=== PATIENT | female | born 1955 | race Hispanic/Latino ===

== ENCOUNTER 2021-08-09 19:00 | Observation (INO) | payer OTHER ==
[~2021-08-09] VITALS: Ht 154.9 cm; Wt 100.9 kg
[2021-08-09] MEDS ORDERED: HYDRALAZINE HCL 20 MG/ML VIAL IV STA (19:36)
[2021-08-09] MEDS ORDERED: CLONIDINE HCL 0.1 MG TAB PO ONE (19:45)
[2021-08-09] MEDS ORDERED: HYDRALAZINE HCL 20 MG/ML VIAL ONE (19:48)
[2021-08-09] MEDS ORDERED: ASPIRIN 325 MG TAB PO ONE (20:00)
[2021-08-09] MEDS ORDERED: ASPIRIN 325 MG TAB ONE (20:02)
[2021-08-09] MEDS ORDERED: HYDRALAZINE HCL 20 MG/ML VIAL IV PRN (22:15)
[2021-08-09] MEDS ORDERED: ASPIRIN 81 MG CHEW TAB PO ONE (22:15)
[2021-08-09] MEDS ORDERED: Morphine 4mg Syringe 4 MG/ML INJ IV PRN (22:15)
[2021-08-09] MEDS ORDERED: NITROGLYCERIN 0.4 MG SUBL SL PRN (22:15)
[2021-08-09] MEDS ORDERED: ONDANSETRON HCL INJ 2MG/ML 2ML 2 MG/ML VIAL IV PRN (22:15)
[2021-08-09] MEDS ORDERED: SODIUM CHLORIDE FLUSH 10 ML SYR INJ PRN (22:15)
[2021-08-09 23:41] VITALS: BP 133/48
[2021-08-10] VITALS: BP 133/48
[2021-08-10] MEDS ORDERED: VASOTEC10 MG PO (03:41)
[2021-08-10] MEDS ORDERED: PNEUMOCOCCAL VACCINE POLYVALENT 23 MCG/0.5 ML VIAL IM SCH (03:47)
[2021-08-10 04:00] VITALS: BP 140/54
[2021-08-10 07:13] LABS: BASOPHILS # (AUTO) 0.1 (0.0-0.1); BASOPHILS % 0.6 % (0.0-1.0); EOSINOPHILS # (AUTO) 0.2 (0.0-0.4); EOSINOPHILS % 2.8 % (0.0-6.0); HEMATOCRIT 33.1 % (34.2-44.1); HEMOGLOBIN 10.6 g/dL (12.0-16.0); LYMPHOCYTES # (AUTO) 1.5 (1.0-3.2); LYMPHOCYTES % 18.1 % (18.0-39.1); MEAN CORPUSCULAR HEMOGLOBIN 29.2 pg (28-32); MEAN CORPUSCULAR VOLUME 91.2 fL (81-99); MONOCYTES # (AUTO) 0.5 (0.2-0.8); MONOCYTES % 6.5 % (4.4-11.3); NEUTROPHILS % 71.8 % (38.7-80.0); PLATELET COUNT 278 x10e3/uL (140-360); RED BLOOD COUNT 3.63 x10e6/uL (3.6-5.1); RED CELL DISTRIBUTION WIDTH 12.5 % (11.7-14.4)
[2021-08-10 07:55] LABS: ANION GAP 11.9 mmol/L (8-16); CALCIUM 8.4 mg/dL (8.4-10.2); CHOL/HDL RATIO 4.5 (3.0-3.6); CREATININE, SERUM 0.69 mg/dL (0.57-1.11); POTASSIUM 3.9 mmol/L (3.5-5.1)
[2021-08-10 08:10] VITALS: BP 140/58
[2021-08-10] MEDS ORDERED: LISINOPRIL 10 MG TAB PO SCH (09:00)
[2021-08-10] MEDS ORDERED: ENALAPRIL MALEATE 10 MG TAB PO SCH (09:00)
[2021-08-10] MEDS ORDERED: ASPIRIN 81 MG ENTERIC COATED PO SCH (09:00)
[2021-08-10 11:51] VITALS: BP 133/47
[2021-08-10 15:58] VITALS: BP 137/53
== END 2021-08-10 19:06 | disposition home or self-care (01) ==
LOC: FSED 19:14 → ERHOLD 22:13 → MED/SURG2 23:18
PROVIDERS: ADMIT Internal Medicine; ATTEND Internal Medicine
DX: R07.89 Other chest pain (principal); I10 Essential (primary) hypertension; E66.9 Obesity, unspecified; Z85.038 Personal history of other malignant neoplasm of large intestine; Z82.49 Family history of ischemic heart disease and other diseases of the circulatory system; Z68.41 Body mass index [BMI] 40.0-44.9, adult; F32.A Depression, unspecified; E78.5 Hyperlipidemia, unspecified; Z20.822 Contact with and (suspected) exposure to COVID-19
CPT/HCPCS: 36415; 70450; 71046; 80048; 80053; 80061; 82550; 82553; 83880; 84484; 85025; 85379; 93005; 93306; 99284; G0378; J0360; U0002